=== PATIENT | female | born 1945 | race Caucasian/White ===

== ENCOUNTER 2016-11-21 10:21 | Observation (INO) | payer MEDICARE ==
[2016-11-21] MEDS ORDERED: Aspirin Low Dose CHEW TAB* 81 MG PO ONE (11:06)
--- NOTE | 2016-11-21 11:31 | RAD ---
INDICATION: Chest pain COMPARISON: Chest x-ray January 28, 2010 TECHNIQUE: Single AP portable view of the chest was obtained. FINDINGS: Image quality is compromised due to the relative inferiority of a portable chest x-ray. The heart and mediastinum exhibit normal size and contour. The lungs are grossly clear. There is no evidence of a large pleural effusion. Incidentally noted there is an 11 mm bony focus overlying the superior lateral aspect of the right humeral head which could represent calcification at the expected location of the supraspinatus tendon. Otherwise the bones are normal for the patient's age. IMPRESSION: No radiographic evidence for acute cardiopulmonary abnormality on this portable chest x-ray.
[2016-11-21 11:36] LABS: Hematocrit 45 % (35-47); Hemoglobin 14.6 g/dl (12.0-16.0); Mean Corpuscular HGB Conc 33 g/dl (31-36); Mean Corpuscular Hemoglobin 30 pg (27-31); Mean Corpuscular Volume 91 fL (80-97); Mean Platelet Volume 10 um3 (7.4-10.4); Red Blood Count 4.92 10^6/ul (4.0-5.4); Red Cell Distribution Width 14 % (10.5-15); White Blood Count 5.9 10^3/ul (3.5-10.8)
[2016-11-21 11:48] LABS: Albumin 4.3 g/dL (3.2-5.2); BUN/Creatinine Ratio 25.8 (8-20); Calcium 9.5 mg/dL (8.6-10.3); EGFR African American 122.4 (>60); EGFR Non-African American 95.2 (>60); Globulin 3.2 g/dL (2-4); Total Bilirubin 0.6 mg/dL (0.2-1.0); Total Protein 7.5 g/dL (6.4-8.9)
[2016-11-21] MEDS ORDERED: Aspirin EC TAB* 325 MG ONE (11:50)
[2016-11-21 12:23] LABS: Potassium 3.6 mmol/L (3.5-5.0)
--- NOTE | 2016-11-21 12:32 | RAD ---
HISTORY: Left leg pain TECHNIQUE: Multiple transverse and longitudinal ultrasound images were obtained of the veins of the right lower extremity using grayscale, color Doppler, and spectral Doppler imaging with and without compression and with augmentation. FINDINGS: VEINS: The common femoral vein, deep femoral vein, femoral vein and popliteal vein are compressible throughout their course, with normal flow on color Doppler imaging and normal response to augmentation on spectral Doppler imaging. SOFT TISSUES: Grossly normal. No large popliteal fossa cyst was identified. IMPRESSION: 1. No sonographic evidence of deep vein thrombosis. 2. Pulsatile flow is incidentally noted which can be seen in the presence of congestive heart failure.
[2016-11-21] MEDS ORDERED: Nitroglycerin TAB 0.4 MG* 0.4 MG TAB SL ONE (12:50)
[2016-11-21] MEDS ORDERED: Nitroglycerin TAB 0.4 MG* 0.4 MG TAB SL PRN (14:08)
[2016-11-21] MEDS ORDERED: Morphine INJ* 2 MG/ML 1 ML CARPUJECT IV PRN (14:08)
[2016-11-21] MEDS: Ibuprofen TAB* 600 MG PO PRN ×2 (14:47→20:58)
[2016-11-21] MEDS ORDERED: Iohexol 350* (CONTRAST) 500 ML MDV IV ONE (15:06)
--- NOTE | 2016-11-21 18:18 | RAD ---
INDICATION: Chest pain with radiation to the back COMPARISON: CT abdomen pelvis dated February 22, 2020 TECHNIQUE: CT angiography of the chest, abdomen and pelvis were obtained from the lung apices to the ischial tuberosities obtained after the injection of 100 mL Omnipaque 350. Reformats in the coronal and sagittal planes were created and independently reviewed. 3-D reformats were created and reviewed as well. ANGIOGRAPHIC FINDINGS: The thoracic and abdominal aorta is normal in size and morphology. There is no active aortic dissection identified. There is no significant atherosclerotic disease of the thoracic aorta. Eccentric mural calcification is noted along the left lateral aspect of the infrarenal abdominal aorta. The branch vessels of the thoracic aortic arch are adequately patent as are the major branch vessels from the abdominal aorta. Contrast is seen filling the bilateral iliac arteries and as far as the visualized proximal superficial femoral arteries. CHEST: There are no filling defects in the central or lobar branches of the pulmonary arteries to indicate acute pulmonary embolism. In the right upper lobe there are 2 pulmonary nodules measuring 3 mm in diameter (image 30 and 27 of 71). Along the posterior aspect of the right upper lobe there is a pleural-based density measuring 1.8 cm in length of doubtful clinical suspicion. There are no large pleural effusions. There is no mediastinal or hilar lymphadenopathy. The heart is grossly normal in appearance. ABDOMEN \T\ PELVIS: The liver, spleen, pancreas and adrenal glands are grossly normal in appearance. The gallbladder is normal. The kidneys are normal in appearance without focal mass, calcification or signs of hydronephrosis. Evaluation of the gastrointestinal tract is limited without oral contrast. There is no small or large bowel dilatation. The patient's normal appendix is identified with air in the lumen (coronal image 41). Scattered rectosigmoid diverticula are seen but none exhibit acute inflammatory change. There is no gross retroperitoneal or mesenteric lymphadenopathy. The pelvic viscera is normal in appearance. Degenerative changes of the lower thoracic and lumbar spine include loss of intervertebral disc height and vacuum disc phenomenon at L3/L4 and L1/L2. There is a small degree of anterolisthesis of L3 over L4. There are no sinister bone lesions. IMPRESSION: 1. No CT evidence of pathologic aortic aneurysm or dissection. 2. No CT evidence of central or lobar pulmonary embolism. 3. There are 2 3 mm pulmonary nodules in the right middle lobe that can be followed up according to the Fleischner Society recommendations according to the patient's risk factors for lung cancer. 4. Additional chronic and degenerative changes as described in the body of the report.
--- NOTE | 2016-11-21 18:20 | HP ---
CC: Dr. Anderson HISTORY AND PHYSICAL: DATE OF ADMISSION: 11/21/16 TIME OF EVALUATION: 1:45 p.m. PRIMARY CARE PROVIDER: Chico Anderson MD CHIEF COMPLAINT: Chest pain. HISTORY OF PRESENT ILLNESS: Ms. Fernandez is a 71-year-old lady with a past medical history of migra ine and H. pylori who presented to the emergency room with complaints of chest pain. She states she was in her usual state of health yesterday and she had a very busy day. She had visi tors, so she spent the whole day cleaning her home and cooking a large turkey dinner. She said that during the day she felt well with a lots of energy and usually when she cooks, she does not really eat that much, but she describes the dinner is being a very rich including turkey, green beans, stuf fing, and pumpkin pie. She states that by the time she went to the bed around midnight, she started to have some left-sided pain described as dull, 4/5 in intensity with some nausea, but no radiation , shortness of breath, or diaphoresis at that time. She did not take any medications and states that she was able to sleep. She woke up around 6 in the morning and the pain was still present, more in tense at that time, 6/10 in intensity still though, but radiating to her neck and jaw, left shoulder , and associated with some left arm tingling. At that time, she did have some nausea, some dyspnea, but denies palpitations or diaphoresis. She denies fever, chills, cough, or any other complaints. She contacted her PCP and was advised to come to the emergency room for further evaluation. The patient denies prior episodes of pain like this in the past. She works as a telephone worker and sta matheus that 3 weeks ago, she was able to clean a multilevel home going up and down the stairs, cleaning surfaces with no dyspnea or chest pain. The patient does have a history of H. pylori and states that she takes omeprazole at night sometimes for epigastric discomfort, but she states that the symptoms she had last night were different and s he does not think she does too much during her dinner. She denies any other GI complaints or any urinary complaints. The patient does complain of pain behind her left knee. This has been a chronic problem and she was going to physical therapy, but had no significant improvement. She denies any recent trips. Her long trip was 2 years to [place]. PAST MEDICAL HISTORY: 1. Migraines. 2. H. pylori. MEDICATION LIST: 1. Relpax 1 tablet p.o. daily as needed for migraines. 2. Omeprazole 40 mg p.o. at bedtime. ALLERGIES: With ACETAMINOPHEN, the patient has epigastric pain and nausea. With AMOXICILLIN, she h ad a rash. With CLARITHROMYCIN, the patient has palpitations. With ERYTHROMYCIN, the patient had a rash. With HYDROCODONE, the patient had nausea. With LATEX, she had a rash. With MOXIFLOXACIN, sh e had itchiness. With NAPROXEN, she had nausea and vomiting. With BACTRIM, she had a rash. With A DHESIVES, she had a rash. With NAPROXEN, she had palpitations and high blood pressure. FAMILY HISTORY: The patient's father has a history of Hodgkin lymphoma and also peripheral vascular disease with carotid artery stenosis. Her brother has severe rheumatoid arthritis. SOCIAL HISTORY: The patient states that she smoked for 2 years in the 1960s and quit. She occasion ally has some wine. She states that she experimented with marijuana in the past, but had no recent drug use. She works as a telephone worker. She is , has kids. Surrogate decision maker is her hu sband, Austin Fernandez, phone number is [phone] or [phone]. REVIEW OF SYSTEMS: A 14-point review of systems was performed and all the pertinent negative and po sitive findings are in the HPI. PHYSICAL EXAMINATION GENERAL: The patient is a pleasant lady, sitting up in the ER stretcher, in no acute distress. VITAL SIGNS: Temperature 98.6, heart rate is 78, respiratory rate is 16, oxygen saturation is 98% o n room air, and blood pressure is 146/71. HEENT: Pupils are equal and reactive to light. Extraocular movements intact. The patient is statu s post cataract surgery. CHEST: Breath sounds present bilaterally with no added sounds. CARDIOVASCULAR: Normal S1, S2. Regular rate and rhythm. No murmurs. ABDOMEN: Soft, nontender, and nondistended. Bowel sounds are present. EXTREMITIES: No edema. NEUROLOGIC: She is alert, awake, and oriented x3. She is able to move all 4 extremities. Power is equal bilaterally. Sensation is intact. DIAGNOSTIC STUDIES/LAB DATA: The patient had a CBC that showed a WBC of 5.9, hemoglobin of 14.6, h ematocrit of 45, platelets of 257 with 38% neutrophils. Chemistry showed a sodium of 136, potassium 3.6, chloride of 101, bicarb of 30, BUN of 16, creatinine of 0.62, glucose of 102, lactic acid of 1, and calcium of 9.5. LFTs were normal. Troponin is 0. EKG done on November 21 at 10:23 a.m. show sinus rhythm at 79 beats per minute with APCs. Negativ e Q-wave in V1, flat T-wave in V2, and this is new when compared to her prior EKG from January 2010. Another EKG was performed at 1139 hours the same date and showed no new changes, and a third one was done at 1249 hours with no new changes. Chest x-ray showed no acute cardiopulmonary abnormality. Lower extremity Doppler showed no sonographic evidence of deep vein thrombosis, but there is a note of positive flow incidentally noted, which can be seen in the presence of congestive heart failure. ASSESSMENT AND PLAN: Ms. Fernandez is a 71-year-old lady with past medical history of migraines and H. pylori who presented to the emergency room with complaints of chest pain associated with nausea a nd mild shortness of breath, who is going to be admitted to rule out acute coronary syndrome. 1. Chest pain, rule out acute coronary syndrome: Although the patient's story is of a lot of clean ing around her home yesterday and cooking that could suggest a musculoskeletal etiology. I am speci ally concerned, the episode she experienced this morning with pain radiating to her neck, shoulder, associated with left arm tingling. She does not have any EKG changes at this time. First troponin is negative. She will be admitted as observation to telemetry. If acute coronary syndrome is ruled out, the patient will undergo exercise Myoview stress test. In the meantime, she will be continued on aspirin and we are going to check a lipid profile. 2. Possible congestive heart failure: The patient did have some complaints of dyspnea with episode of chest pain and her lower extremity Doppler mentions there is pulsatile flow that could be noted in the patients with congestive heart failure, so an echocardiogram will be performed. 3. Elevated blood pressure: Although the patient has no history of hypertension, her blood pressur e has been elevated throughout her emergency room stay. At this point, I am just going to monitor h er numbers, but we will not give medications. 4. Code status: Full. 5. DVT prophylaxis: The patient has a score of 2 on the DVT Prophylaxis Risk Assessment Guide and she will be started on subcutaneous heparin. TIME SPENT: Approximately 65 minutes was spent with the patient interview, medical records review, physical examination to complete the admission, and more than half this time was spent [id number] with the patient and coordination of care. [id number]/[facility] #: [id number]
[2016-11-21] MEDS ORDERED: traMADol TAB* 50 MG PO PRN (19:59)
[2016-11-21] MEDS: Heparin VIAL(*) 5000 UNITS/ML VIAL (FIVE THOUSAND) SUBCUT SCH (21:00)
[2016-11-22] MEDS: Ibuprofen TAB* 600 MG PO PRN ×2 (03:22→21:48)
[2016-11-22] MEDS: Heparin VIAL(*) 5000 UNITS/ML VIAL (FIVE THOUSAND) SUBCUT SCH ×3 (05:18→20:48)
[2016-11-22 06:21] LABS: HDL Cholesterol 66.5 mg/dL
[2016-11-22] MEDS ORDERED: Omeprazole CAP* 20 MG PO SCH ×2 (07:30→21:00)
[2016-11-22] MEDS: Aspirin EC Low Dose* 81 MG TAB.EC PO SCH (08:24)
--- NOTE | 2016-11-22 10:07 | ECHO ---
Patient: JUDITH MEREDITH [facility] Rec#: [id number] : 1945 Date: 11/22/2016 Age: 71y Height: 157.5 cm / 62.0 in Weight: 61.7 kg / 136.0 lbs Sex: F BSA: 1.6 Room#: 433 Admit Date#: 11/21/2016 Type: Inpatient Referring: Mirlande Adam MD Reading: Sita Sands MD Gas Operations Superintendent: Cara Aviles RN RDCS CC: Chico Anderson MD Transthoracic Echocardiogram Indication: Chest pain, dyspnea BP: 133/66 HR: 65 Rhythm: NSR with PACs Findings History: Migraines Technical Comments: The study quality is fair. Completed at 0835. Left Ventricle: The left ventricular chamber size, wall thickness and systolic function are within normal limits. There are no wall motion abnormalities The estimated ejection fraction is 55-60%. There is no consistent Doppler evidence of clinically significant diastolic dysfunction. Left Atrium: The left atrial chamber size is normal. Right Ventricle: The right ventricular chamber size and systolic function are within normal limits. Right Atrium: The right atrial cavity size is normal. A prominent chiari network is noted in the right atrium. Aortic Valve: The aortic valve is trileaflet. The aortic valve leaflets are mildly thickened. There is a trace of aortic regurgitation. There is no evidence of aortic stenosis. Mitral Valve: There is mitral annular calcification. The mitral valve leaflets are mildly thickened. Mild subvalvular thickening of the mitral valve is visualized. There is mild to moderate mitral regurgitation. There is no evidence of mitral stenosis. Tricuspid Valve: The tricuspid valve leaflets are normal. There is mild tricuspid regurgitation. No pulmonary hypertension is noted. There is no tricuspid stenosis. Pulmonic Valve: The pulmonic valve structure is not well visualized. There is mild pulmonic regurgitation. There is no pulmonic stenosis. Pericardium: There is no significant pericardial effusion. A pericardial fat pad is visualized. Aorta: The ascending aorta is not well visualized. There is no dilatation of the aortic arch. There is no dilation of the aortic root. Pulmonary Artery: The main pulmonary artery is not well visualized. Venous: The inferior vena cava is dilated. There is a greater than 50% respiratory change in the inferior vena cava dimension. Summary: There was not any prior study for comparison. Conclusions The estimated ejection fraction is 55-60%. There is no consistent Doppler evidence of clinically significant diastolic dysfunction. There is a trace of aortic regurgitation. There is mild to moderate mitral regurgitation. There is mild tricuspid regurgitation. No pulmonary hypertension is noted. There is mild pulmonic regurgitation. Measurements Name Value Normal Range RVDdMajor (2D) 3 cm (2.2 - 4.4) RAd ISD 4CH 3.8 cm (3.4 - 4.9) RA (A4C)W 3.2 cm (2.9 - 4.6) IVSd (2D) 0.8 cm (0.6 - 1) LVPWd (2D) 0.8 cm (0.6 - 1) LVIDd (2D) 3.8 cm (3.6 - 5.4) LVIDs (2D) 2.6 cm - LV FS (2D) 32 % (25 - 45) Aortic Annulus 2 cm (1.4 - 2.6) Ao root diameter (2D) 3.1 cm (2.1 - 3.5) Aortic arch 2.7 cm (1.8 - 3.4) LA dimension (AP) 2D 3.1 cm (2.3 - 3.8) LAd ISD 4CH 3.7 cm (2.9 - 5.3) LA ISD 4CH W 4.3 cm (2.5 - 4.5) Name Value Normal Range LA ESV SP 4CH (A/L) 39 ml - LA ESV SP 2CH (A/L) 35 ml - LA ESV BP (A/L) 41 ml - LA ESV BP (A/L) index 25 ml/m2 - LA ESV SP 4CH (MOD) 34 ml - LA ESV SP 2CH (MOD) 31 ml - Name Value Normal Range MV E-wave Vmax 0.91 m/sec - MV deceleration time 222 msec - MV A-wave Vmax 0.97 m/sec - MV E:A ratio 0.9 ratio - LV septal e' Vmax 0.1 m/sec - LV lateral e' Vmax 0.11 m/sec - LV E:e' septal ratio 9.1 ratio - LV E:e' lateral ratio 8.3 ratio - Name Value Normal Range AV Vmax 1.3 m/sec - LVOT Vmax 0.99 m/sec - KIMBERLY Vmax 0.51 m/sec - Name Value Normal Range TR Vmax 2.3 m/sec - TR peak gradient 21 mmHg - RAP 8 mmHg - RVSP 29 mmHg - IVC diameter 2.2 cm - Name Value Normal Range PV Vmax 0.89 m/sec -
[2016-11-22] MEDS ORDERED: oxyCODONE TAB* 5 MG TAB PO PRN (10:50)
--- NOTE | 2016-11-22 14:33 | PN ---
Subjective Date of Service: 11/22/16 Interval History: HOSPITALIST PROGRESS NOTE Patient seen and examined at bedside. She feels better this AM, but still having intermittent episodes of left side chest pain radiating to her neck and jaw, associated with left arm tingling, while resting in bed, with provoking factors. Resolved spontaneously. Headache is improved with Ibuprofen and Morphine. 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 Family History: Unchanged from Admission Social History: Unchanged from Admission Past Medical History: Unchanged from Admission Objective Active Medications: Aspirin (Aspirin Ec Low Dose*) 81 mg PO DAILY [facility] Last Admin: 11/22/16 08:24 Dose: 81 mg Heparin Sodium (Porcine) (Heparin Vial(*)) 5,000 units SUBCUT Q8HR [facility] Last Admin: 11/22/16 05:18 Dose: 5,000 units Ibuprofen (Motrin Tab*) 600 mg PO Q6H PRN PRN Reason: PAIN Last Admin: 11/22/16 03:22 Dose: 600 mg Morphine Sulfate (Morphine Inj (Syringe)*) 2 mg IV Q4H PRN PRN Reason: SEVERE PAIN Last Admin: 11/22/16 08:24 Dose: 2 mg Omeprazole (Prilosec Cap*) 40 mg PO DAILY@0730 [facility] Last Admin: 11/22/16 08:24 Dose: 40 mg Oxycodone HCl (Roxycodone Tab*) 5 mg PO Q6H PRN PRN Reason: Moderate to severe pain Last Admin: 11/22/16 12:17 Dose: 5 mg Tramadol HCl (Ultram*) 50 mg PO Q6H PRN PRN Reason: PAIN Vital Signs 11/22/16 11/22/16 11/22/16 09:50 11:11 12:17 Temperature 98.7 F 98.1 F Pulse Rate 72 53 Respiratory 16 16 16 Rate Blood Pressure 130/63 127/57 (mmHg) O2 Sat by Pulse 98 98 Oximetry Oxygen Devices in Use Now: None Appearance: Pleasant lady sitting up in bed in NAD. Eyes: No Scleral Icterus Ears/Nose/Mouth/Throat: Mucous Membranes Moist Neck: Trachea Midline Respiratory: Symmetrical Chest Expansion and Respiratory Effort, Clear to Auscultation Cardiovascular: NL Sounds; No Murmurs; No JVD, RRR Abdominal: NL Sounds; No Tenderness; No Distention Extremities: No Edema Skin: No Rash or Ulcers Neurological: Alert and Oriented x 3, NL Muscle Strength and Tone Lines/Tubes/Other Access: Clean, Dry and Intact Peripheral IV Nutrition: Taking PO's Result Diagrams: 11/21/16 11:26 11/21/16 11:26 Assess/Plan/Problems-Billing Assessment: Mrs. Fernandez is a 71yo F with PMH of migraines and H. pylori who presented to ED with c/o CP. - Patient Problems (1) Chest pain Comment: - ACS is ruled out. - Less likely to be cardiac at this point with serial negative troponins, no EKG changes and echo with no wall motion abnormalities. - CTA chest was negative for dissection or PE. - For stress test tomorrow, but suspect in the end her pain will be musculoskeletal secondary to cleaning her home and lifiting heavy things. She has no weakness to suggest a cervical spine process at this time. (2) DVT prophylaxis Comment: - SQ heparin. (3) Full code status Status and Disposition: OBV.
--- NOTE | 2016-11-22 22:17 | ED ---
Autumn Orosco Rebecca, scribed for Raulito Rodriguez MD on 11/21/16 at 1123 . HPI Chest Pain - HPI Summary HPI Summary: Pt is a 71 y/o F who presents to ED c/o CP. Pain began suddenly last night, she went back to sleep and woke up at 0620 with the pain again. Pain has been constant since onset. Pain is midsternal with radiation to the L jaw and is characterized as a "pinprick." Pain is currently not present. Sx alleviated by spontaneous resolution, aggravated by nothing. Has not taken anything to treat sx today. Additionally c/o LUE tingling, SOB, diaphoresis and nausea. Denies cough, edema and calf pain. Notes that she has chronic pain in the LLE which causes a limp - is in PT. - History of Current Complaint Chief Complaint: EDChestPainROMI Time Seen by Provider: 11/21/16 11:06 Hx Obtained From: Patient Onset/Duration: Started Days Ago - last night, Resolved Timing: Constant Initial Severity: Moderate Current Severity: None Pain Intensity: 0 Pain Scale Used: 0-10 Numeric Chest Pain Location: Mid Sternal Chest Pain Radiates: Yes Chest Pain Radiates To:: Jaw - left Character: Sharp/Stabbing - "pinprick" Aggravating Factor(s): Nothing Alleviating Factor(s): Nothing Associated Signs and Symptoms: Positive: Chest Pain, Tingling - LUE, Shortness of Breath, Diaphoresis, Nausea. Negative: Cough, Calf Pain/Swelling - Allergy/Home Medications Allergies/Adverse Reactions: Allergies Allergy/AdvReac Type Severity Reaction Status Date / Time Acetaminophen [From Vicodin] Allergy HYPER, Verified 07/05/14 12:32 PAIN INCREASED, NAUSEA Amoxicillin Allergy Rash Verified 07/05/14 12:32 Clarithromycin [From Biaxin] Allergy See Comment Verified 07/05/14 12:32 Clavulanic Acid Allergy Stomach Verified 07/05/14 12:32 [From Augmentin] Cramps Erythromycin Allergy Rash Verified 07/05/14 12:32 Hydrocodone [From Vicodin] Allergy HYPER, Verified 07/05/14 12:32 PAIN INCREASED, NAUSEA Latex Allergy Rash Verified 07/05/14 12:32 Moxifloxacin Allergy See Comment Verified 07/05/14 12:32 Naproxen [From Aleve] Allergy N/V Verified 07/05/14 12:32 Sulfamethoxazole Allergy Rash Verified 07/05/14 12:32 w/Trimethoprim [From Bactrim] ADHESIVES Allergy See Comment Uncoded 07/02/14 08:40 NAPROXEN Allergy See Comment Uncoded 07/02/14 08:40 Home Medications: Home Medications Omeprazole CAP* [Prilosec CAP* 20 MG] 40 mg PO DAILY 11/21/16 [History Confirmed 11/21/16] PMH/Surg Hx/FS Hx/Imm Hx Cardiovascular History: Denies: Other Cardiovascular Problems/Disorders Respiratory History: Denies: Other Respiratory Problems/Disorders GI History: Denies: Other GI Disorders History: Reports: Hx Kidney Stones - IN THE PAST WITH STENT PLACED Denies: Other Problems/Disorders Musculoskeletal History: Denies: Other Musculoskeletal History Sensory History: Reports: Hx Cataracts, Hx Contacts or Glasses - GLASSES Denies: Hx Hearing Aid Opthamlomology History: Reports: Hx Cataracts, Hx Contacts or Glasses - GLASSES Neurological History: Reports: Hx Headaches, Hx Migraine - INTERMITTENT Denies: Other Neuro Impairments/Disorders - Surgical History Surgery Procedure, Year, and Place: VERICOSE VEIN 2004 [facility]. 02/16/13, BUNIONECTOMY, RIGHT , [facility] [place]. URETERAL STENT, [facility] [place], 2007. TONSILECTOMY A CHILD Hx Anesthesia Reactions: Yes - VOMITING Infectious Disease History: No Infectious Disease History: Denies: Traveled Outside the [place] in Last 30 Days - Family History Known Family History: Negative: Hypertension, Diabetes - Social History Alcohol Use: Rare Alcohol Amount: HOLIDAYS Substance Use Type: Reports: None Review of Systems Positive: Skin Diaphoresis. Negative: Fever, Chills Negative: Blurred Vision, Erythema Negative: Sore Throat Positive: Chest Pain - midsternal Positive: Shortness Of Breath. Negative: Cough Positive: Nausea. Negative: Abdominal Pain, Vomiting Negative: dysuria, hematuria Positive: Other - Denies calf pain. Negative: Myalgia, Edema Negative: Rash Neurological: Other - LUE tingling, Denies dizziness All Other Systems Reviewed And Are Negative: Yes Physical Exam - Summary Physical Exam Summary: Constitutional: Well-developed, Well-nourished, Alert. (-) Distressed Skin: Warm, Dry HENT: Eyes: Conjunctiva normal Neck: Musculoskeletal ROM normal neck. (-) JVD, (-) Stridor, (-) Tracheal deviation Cardio: Rhythm regular, rate normal, Heart sounds normal; Intact distal pulses; The pedal pulses are 2+ and symmetric. Radial pulses are 2+ and symmetric. (-) Murmur Pulmonary/Chest wall: Effort normal. (-) Respiratory distress, (-) Wheezes, (-) Rales Abd: Soft, (-) Tenderness, (-) Distension, (-) Guarding, (-) Rebound Musculoskeletal: (-) Edema Lymph: (-) Cervical adenopathy Neuro: Alert, Oriented x3 Psych: Mood and affect Normal Triage Information Reviewed: Yes Vital Signs On Initial Exam: Initial Vitals Temp Pulse Resp BP Pulse Ox 98.6 F 72 15 157/65 100 11/21/16 10:29 11/21/16 10:29 11/21/16 10:29 11/21/16 10:29 11/21/16 10:29 Vital Signs Reviewed: Yes Diagnostics - Vital Signs Vital Signs Temp Pulse Resp BP Pulse Ox 11/21/16 10:29 98.6 F 72 15 157/65 100 - Laboratory Result Diagrams: 11/21/16 11:26 11/21/16 11:26 Lab Statement: Any lab studies that have been ordered have been reviewed, and results considered in the medical decision making process. - Radiology No standard instances Xray Interpretation: No Acute Changes Radiology Interpretation Completed By: Radiologist - Ultrasound No standard instances Ultrasound Interpretation Completed By: Radiologist - Venous Doppler Study - 1. No sonographic evidence of deep vein thrombosis. 2. Pulsatile flow is incidentally noted which can be seen in the presence of congestive heart failure. - EKG 1139 Cardiac Rate: NL - 64 bpm EKG Rhythm: Sinus Rhythm EKG Interpretation: No STEMI 1249 Cardiac Rate: NL - 74 bpm EKG Rhythm: Sinus Rhythm EKG Interpretation: No STEMI EKG Comparison: No Significant Change - from EKG today at 1139 Re-Evaluation - Re-Evaluation First Eval Re-Evaluation Time: 12:52 Change: Worse Comment: Chest pain has returned. Chest Pain Course/Dx - Course Assessment/Plan: Pt is a 71 y/o with a CC of CP since last night. Additionally c /o LUE tingling, SOB, diaphoresis and nausea. Denies cough, edema and calf pain. Venous Doppler study, EKG and CXR reveal no acute pathology. Discussed care of pt with Dr. Gloria, hospitalist, who accepts pt for admission. Pt will be admitted with a dx of chest pain, unspecified. - Diagnoses Provider Diagnoses: Chest pain, unspecified - Provider Notifications Discussed Care Of Patient With: Dr. Gloria hospitalist, who accepts pt for admission. Time Discussed With Above Provider: 12:48 Discharge - Discharge Plan Condition: Good Disposition: ADMITTED TO [facility] documentation as recorded by the Autumn hernadnez Rebecca accurately reflects the service I personally performed and the decisions made by , Raulito Rodriguez MD.
[2016-11-23] MEDS: Heparin VIAL(*) 5000 UNITS/ML VIAL (FIVE THOUSAND) SUBCUT SCH (07:13)
--- NOTE | 2016-11-23 11:54 | RAD ---
HISTORY: Chest pain COMPARISONS: None TECHNIQUE: A 1 day stress/rest myocardial perfusion study was performed, with exercise stress. The exercise portion was performed using the Roger protocol, for a total METs of 10.1. The stress portion was monitored by Dr. Phillips. Gated SPECT imaging was performed, with CT-based attenuation correction DOSE: Stress: Technetium 99m tetrofosmin, 25.94 millicuries, injected at 9:01 AM on November 23, 2016 Rest: Technetium 99m tetrofosmin, 10.2 millicuries, injected at 7:20 AM on November 23, 2016 Pharmacologic agent: None FINDINGS: CARDIAC MONITORING: No EKG changes of ischemia with stress. Peak heart rate of 155 bpm, 103% of predicted EF: 82 % TID: 1.07 MOTION: Normal motion, with normal wall thickening. PERFUSION: There is a reversible perfusion defect of the anterolateral wall that nearly completely resolved with attenuation correction. The small residual may be an artifact of misregistration. OTHER: None IMPRESSION: SMALL REVERSIBLE PERFUSION DEFECT OF THE ANTEROLATERAL WALL WHICH MAY BE ARTIFACTUAL. NORMAL EJECTION FRACTION. ASSESSMENT: LOW RISK. Based on imaging criteria from ACC/AHA 2002. Guideline Update for the Management of Patient's with Chronic Stable Angina, table 23. Noninvasive Risk Stratification.
[2016-11-23 12:46] VITALS: BP 126/60
[2016-11-23] MEDS: Aspirin EC Low Dose* 81 MG TAB.EC PO SCH (12:55)
--- NOTE | 2016-11-24 03:28 | DS ---
DISCHARGE SUMMARY: DATE OF ADMISSION: 11/21/16 DATE OF DISCHARGE: 11/23/16 PRIMARY CARE PROVIDER: Dr. Anderson. DISCHARGE DIAGNOSES: 1. Atypical chest pain, acute coronary syndrome ruled out, likely musculoskeletal in nature. 2. Possible hypertension. 3. Incidental finding of lung nodule. SECONDARY DIAGNOSES: 1. Migraines. 2. History of Helicobacter pylori. MEDICATION LIST: 1. Relpax 1 tablet p.o. daily as needed for migraines. 2. Omeprazole 40 mg p.o. at bedtime. New medication: Ibuprofen 600 mg p.o. q.6 hours as needed for pain. HOSPITAL COURSE: Ms. Fernandez is a 71-year-old lady with a past medical history as stated above that presented to the emergency room on November 21 with complaints of chest pain. She has performed a lot of cleaning at her home, lifting heavy things, preparing a turkey dinner, and when she was finally able to finish everything and went to bed, she started to have left-sided chest pain radiating to her shoulder and with some arm tingling. For more details about presentation, I refer you to her history and physical. The patient was admitted to the telemetry floor, where she had serial troponins that were negative and she had no acute EKG changes. She had only PVCs while on telemetry, but no other significant arrhythmias. As the patient's chest pain also was radiating to her neck and back, a CTA of the chest was performed. Her CTA of the chest, abdomen, and pelvis showed no CT evidence of pathologic aortic aneurysm or dissection. No CT evidence of potential or lobar pulmonary embolism. There was incidental finding of two 3-mm pulmonary nodules in the right middle lobe that can be followed up according to the Fleischner Society recommendations, according to the patient's risks factors for lung cancer. The patient had a transthoracic echocardiogram. Echocardiogram showed ejection fraction of 55% to 60%, no consistent Doppler evidence of clinically significant diastolic dysfunction. Trace aortic regurgitation, [id number] mitral regurgitation, mild tricuspid regurgitation, no pulmonary hypertension. The patient underwent an exercise Myoview stress test. The exercise Myoview stress test showed a small reversible perfusion defect of the anterolateral wall , which may be artifactual. There is normal ejection fraction and the assessment was this was a low-risk stress test. Considering her presentation, I believe her chest pain is noncardiac in nature and is probably musculoskeletal associated with exertion of lifting heavy things and cleaning up her house. While in the hospital, the patient was noted to have some elevation of her blood pressure with systolics in the 140s to 150s and diastolic sometimes up to 90s. I believe this is not enough to make a formal diagnosis of hypertension, but her number should be followed as outpatient to decide if she will need medication. At this point, I just advised dietary changes. The same applies to her cholesterol. Her LDL is 111, and she was also advised about diet. The patient is medically stable for discharge at this time. She will follow up with Dr. Anderson as outpatient. PHYSICAL EXAMINATION: Vital Signs: Temperature 97.7, heart rate is 75, respiratory rate is 16, oxygen saturation 99% on room air, blood pressure is 126 /60. General: The patient is a pleasant lady, sitting up in chair, in no acute distress. CVS: Normal S1 and S2. Regular rate and rhythm. Chest: Breath sounds present bilaterally with no added sounds. Abdomen is soft. Bowel sounds are present. Extremities: No edema. Neuro: She is alert, awake, oriented x3. She is able to move all 4 extremities. DIET: Regular diet. ACTIVITIES: As tolerated. DISPOSITION: To home. STATUS WHILE IN THE HOSPITAL: Observation. If you need more information, please feel free to call me at [phone] or please obtain the full medical records. The patient was advised about concerning symptoms and what should prompt her to return to the emergency room. TIME SPENT: Approximately 45 minutes was spent to complete this discharge. All of the patient and her 's questions were answered. CC: Dr. Anderson * [id number]/[facility] #: [id number] [facility]
== END 2016-11-23 15:00 | disposition home or self-care (01) ==
LOC: ED 10:21 → MEDTELE 12:53
PROVIDERS: ADMIT Internal Medicine; ATTEND Internal Medicine
DX: R07.9 Chest pain, unspecified (principal); R91.1 Solitary pulmonary nodule; M79.604 Pain in right leg; R51 Headache; I49.1 Atrial premature depolarization; R20.2 Paresthesia of skin; R06.00 Dyspnea, unspecified; I34.0 Nonrheumatic mitral (valve) insufficiency; Z88.0 Allergy status to penicillin; Z88.2 Allergy status to sulfonamides; Z88.1 Allergy status to other antibiotic agents; Z88.8 Allergy status to other drugs, medicaments and biological substances; Z87.891 Personal history of nicotine dependence
CPT/HCPCS: 36415; 71010; 71275; 74174; 78452; 80053; 80061; 83605; 84484; 85025; 93005; 93017; 93306; 96372; 96374; 99283; A9270-GY; A9502; G0378; J1644; J2270; Q9967

== ENCOUNTER 2018-06-10 09:43 | Emergency (ER) | payer MEDICARE ==
--- NOTE | 2018-06-10 10:25 | ED ---
HPI Chest Pain - HPI Summary HPI Summary: Patient is a 73 y/o F w/ c/o two episodes of intermittent chest pain onsetting yesterday morning and today this morning, both at around 0800. In the room, she denies chest pain as currently present. First episodes of chest pain was midsternal, second was leftsided. Chest pain is described as sharp and onset while drinking coffee both mornings. Both episodes of chest pain lasted 10-15 minutes and was noted to have "went away naturally". She states that clearing her chest of mucous aggravated her chest pain. Patient also notes that she experienced nausea and left arm aching/numbness shortly after chest pain onset. Patient states she has no home medication. FMHx of breast cancer in mother, denies cardiac FMHx. Patient notes that she has Hx of "extra heartbeats". She denies smoking. - History of Current Complaint Chief Complaint: EDChestPainROMI Time Seen by Provider: 06/10/18 10:06 Hx Obtained From: Patient Onset/Duration: Started Hours Ago - episode today onset 0800, Started Days Ago - first episode yersterday 0800, Resolved Timing: Lasting Minutes - lasting 10-15, both episodes Current Severity: None Pain Intensity: 0 Pain Scale Used: 0-10 Numeric - 0/10 Chest Pain Location: Mid Sternal - yesterday episode, Left Anterior - today's episode Character: Sharp/Stabbing Aggravating Factor(s): Other: - clearing chest of mucous Alleviating Factor(s): Nothing Associated Signs and Symptoms: Positive: Tingling - left arm, Nausea, Other: - left arm aching - Additional Pertinent History Primary Care Physician: [id number] - Allergy/Home Medications Allergies/Adverse Reactions: Allergies Allergy/AdvReac Type Severity Reaction Status Date / Time MS Acetaminophen Allergy HYPER, Verified 06/10/18 09:49 [From Vicodin] PAIN INCREASED, NAUSEA MS Amoxicillin [Amoxicillin] Allergy Rash Verified 06/10/18 09:49 MS Clarithromycin Allergy See Comment Verified 06/10/18 09:49 [From Biaxin] MS Clavulanic Acid Allergy Stomach Verified 06/10/18 09:49 [From Augmentin] Cramps MS Erythromycin Allergy Rash Verified 06/10/18 09:49 [Erythromycin] MS Latex [Latex] Allergy Rash Verified 06/10/18 09:49 MS Moxifloxacin Allergy See Comment Verified 06/10/18 09:49 [Moxifloxacin] MS Sulfamethoxazole Allergy Rash Verified 06/10/18 09:49 w/Trimethoprim [From Bactrim] MS Hydrocodone [From Vicodin] AdvReac HYPER, Verified 06/10/18 09:49 PAIN INCREASED, NAUSEA MS Naproxen [From Aleve] AdvReac N/V Verified 06/10/18 09:49 ADHESIVES Allergy See Comment Uncoded 07/02/14 08:40 Home Medications: Home Medications Omeprazole CAP* [Prilosec CAP* 20 MG] 40 mg PO BEDTIME PRN 06/10/18 [History Confirmed 06/10/18] PMH/Surg Hx/FS Hx/Imm Hx Endocrine/Hematology History: Denies: Hx Diabetes Cardiovascular History: Reports: Hx Angina Denies: Hx Coronary Artery Disease, Hx Hypercholesterolemia, Hx Hypertension , Hx Myocardial Infarction, Hx Valvular Heart Disease, Other Cardiovascular Problems/Disorders Respiratory History: Denies: Hx Asthma, Hx Chronic Obstructive Pulmonary Disease (COPD), Other Respiratory Problems/Disorders GI History: Denies: Other GI Disorders History: Reports: Hx Kidney Stones - IN THE PAST WITH STENT PLACED Denies: Other Problems/Disorders Musculoskeletal History: Denies: Other Musculoskeletal History Sensory History: Reports: Hx Cataracts, Hx Contacts or Glasses - GLASSES Denies: Hx Hearing Aid Opthamlomology History: Reports: Hx Cataracts, Hx Contacts or Glasses - GLASSES Neurological History: Reports: Hx Headaches, Hx Migraine - INTERMITTENT Denies: Other Neuro Impairments/Disorders - Surgical History Surgery Procedure, Year, and Place: VERICOSE VEIN 2005 [facility]. 02/16/13, [place] [facility] [place] [facility] [place] CH[place] Hx Anesthesia Reactions: Yes - VOMITING Infectious Disease History: No Infectious Disease History: Denies: Traveled Outside the [place] in Last 30 Days - Family History Known Family History: Positive: Other - mother had breast cancer Negative: Cardiac Disease, Hypertension, Diabetes - Social History Alcohol Use: Rare Alcohol Amount: HOLIDAYS Substance Use Type: Reports: None Smoking Status (MU): Former Smoker Review of Systems Positive: Chest Pain - midsternal yesterday, left sided today Positive: Nausea Neurological: Other - left arm tingling/aching All Other Systems Reviewed And Are Negative: Yes Physical Exam - Summary Physical Exam Summary: Appearance: The patient is well-nourished in no acute distress and in no acute pain. Skin: The skin is warm and dry and skin color reflects adequate perfusion. HEENT: The head is normocephalic and atraumatic. The pupils are equal and reactive. The conjunctivae are clear and without drainage. Nares are patent and without drainage. Mouth reveals moist mucous membranes and the throat is without erythema and exudate. The external ears are intact. The ear canals are patent and without drainage. The tympanic membranes are intact. Neck: The neck is supple with full range of motion and non-tender. There are no carotid bruits. There is no neck vein distension. Respiratory: Chest is non-tender. Lungs are clear to auscultation and breath sounds are symmetrical and equal. Cardiovascular: Heart is regular rate and rhythm. There is no murmur or rub auscultated. There is no peripheral edema and pulses are symmetrical and equal. Abdomen: The abdomen is soft and non-tender. There are normal bowel sounds heard in all four quadrants and there is no organomegaly palpated. Musculoskeletal: There is no back tenderness noted. Extremities are non-tender with full range of motion. There is good capillary refill. There is no peripheral edema or calf tenderness elicited. Tenderness at left parasternal area, point tenderness. Neurological: Patient is alert and oriented to person, place and time. The patient has symmetrical motor strength in all four extremities. Cranial nerves are grossly intact. Deep tendon reflexes are symmetrical and equal in all four extremities. Psychiatric: The patient has an appropriate affect and does not exhibit any anxiety or depression. Triage Information Reviewed: Yes Vital Signs On Initial Exam: Initial Vitals Temp Pulse Resp BP Pulse Ox 98.2 F 76 18 170/66 97 06/10/18 09:45 06/10/18 09:45 06/10/18 09:45 06/10/18 09:45 06/10/18 09:45 Vital Signs Reviewed: Yes Diagnostics - Vital Signs Vital Signs Temp Pulse Resp BP Pulse Ox 06/10/18 10:00 70 16 99 06/10/18 09:59 71 19 98 06/10/18 09:57 74 177/81 99 06/10/18 09:45 98.2 F 76 18 170/66 97 - Laboratory Result Diagrams: 06/10/18 10:30 06/10/18 10:30 Lab Statement: Any lab studies that have been ordered have been reviewed, and results considered in the medical decision making process. - Radiology CXR Xray Interpretation: No Acute Changes Radiology Interpretation Completed By: Radiologist - no active disease; this report was reviewed by ED physician - EKG 0957 Cardiac Rate: NL - rate of 76, EKG Rhythm: Sinus Rhythm EKG Interpretation: APCs, no acute change Re-Evaluation - Re-Evaluation First Eval Re-Evaluation Time: 14:37 Change: Improved Comment: Patient reports feeling fine. She will be discharged to home and follow up with PCP in 2-3 days. She is agreeable with this plan. Chest Pain Course/Dx - Course Course Of Treatment: Ms. Fernandez presented with an atypical chest pain that has occurred twice in the last few days. She was worked up with labs including a d-dimer and delayed troponin. She was kept on a monitor and EKG was noted to have no acute ischemic changes. It does not appear as though anything dangerous is happening but I did recommend close follow-up next week with her PCP for further workup. - Diagnoses Provider Diagnoses: Chest pain Discharge - Sign-Out/Discharge Documenting (check all that apply): Patient Departure - discharge - Discharge Plan Condition: Stable Disposition: HOME Patient Education Materials: Chest Pain (ED) Referrals: Chico Anderson MD [Primary Care Provider] - 3 Days Additional Instructions: Return to ED for any changing or worsening symptoms. Follow up with primary care physician in 2-3 days. - Billing Disposition and Condition Condition: STABLE Disposition: Home - Attestation Statements Document Initiated by Jaycee: Yes Documenting Scribe: Raji Ramos Provider For Whom Jaycee is Documenting (Include Credential): Bashir Penaloza MD Scribe Attestation: Raji Orosco, scribed for Bashir Penaloza MD on 06/10/18 at 1843. Scribe Documentation Reviewed: Yes Provider Attestation: The documentation as recorded by the Raji hernandez accurately reflects the service I personally performed and the decisions made by me, Bashir Penaloza MD
[2018-06-10 10:44] LABS: ABS Basophils 0 10^3/ul (0-0.2); ABS Eosinophils 0.2 10^3/ul (0-0.6); ABS Monocytes 0.7 10^3/ul (0-0.8); ABS Nucleated RBC 0 10^3/ul; Eosinophil % 3.9 % (0-6); Hematocrit 41 % (35-47); Hemoglobin 13.7 g/dl (12.0-16.0); Lymphocyte % 40.6 % (25-47); Mean Corpuscular HGB Conc 34 g/dl (31-36); Mean Corpuscular Hemoglobin 31 pg (27-31); Mean Corpuscular Volume 91 fL (80-97); Mean Platelet Volume 8.4 um3 (7.4-10.4); Nucleated Red Blood Cells % 0.1; Platelet Count 242 10^3/ul (150-450); Red Blood Count 4.48 10^6/ul (4.00-5.40); Red Cell Distribution Width 14 % (10.5-15)
[2018-06-10 10:57] LABS: INR 0.91 (0.77-1.02)
[2018-06-10 11:11] LABS: EGFR Non-African American 92.9 (>60)
--- NOTE | 2018-06-10 11:52 | RAD ---
INDICATION: Left shoulder and arm pain COMPARISON: January 28, 2010 TECHNIQUE: An AP portable view obtained at 1056 hours is submitted. FINDINGS: Bones/Soft Tissues: There are no acute bony findings. Cardiomediastinal: The cardiomediastinal silhouette is normal. Lungs: There are no infiltrates. Pleura: There are no pleural effusions. Other: None IMPRESSION: NO ACTIVE DISEASE.
[2018-06-10 14:39] VITALS: BP 138/72
== END 2018-06-10 14:41 | disposition home or self-care (01) ==
LOC: ED 09:43
DX: R07.9 Chest pain, unspecified (principal); R11.0 Nausea; Z88.0 Allergy status to penicillin; Z87.442 Personal history of urinary calculi; Z87.891 Personal history of nicotine dependence
CPT/HCPCS: 36415; 71045; 80053; 83605; 84484; 85025; 85379; 85610; 93005; 99283

== ENCOUNTER 2019-04-09 11:13 | Emergency (ER) | payer MEDICARE ==
[2019-04-09 11:47] LABS: Urine Appearance Clear; Urine Bacteria Absent (Absent); Urine Bilirubin Negative (Negative); Urine Blood 1+ (Negative); Urine Color Straw; Urine Glucose Negative (Negative); Urine Ketones Negative (Negative); Urine Nitrite Negative (Negative); Urine Protein Negative (Negative); Urine Red Blood Cell 1+(3-5/hpf) (Absent); Urine Specific Gravity 1.004 (1.010-1.030); Urine Squamous Epithelial Cell Present (Absent); Urine Urobilinogen Negative (Negative); Urine White Blood Cell Absent (Absent)
[2019-04-09] MEDS ORDERED: NS 0.9% 1000 ML** 1,000 ML IV ONE (12:32)
[2019-04-09] MEDS ORDERED: Ketorolac INJ* 30 MG/ML 1 ML VIAL IV ONE (12:32)
[2019-04-09] MEDS ORDERED: Phenazopyridine TAB* 100 MG PO ONE (12:34)
[2019-04-09 13:15] LABS: ABS Eosinophils 0.1 10^3/ul (0-0.6); ABS Lymphocytes 1.2 10^3/ul (1.0-4.8); ABS Monocytes 0.7 10^3/ul (0-0.8); ABS Neutrophils 3.5 10^3/ul (1.5-7.7); Eosinophil % 1.3 %; Hematocrit 43 % (35-47); Hemoglobin 14.6 g/dL (12.0-16.0); Lymphocyte % 22.2 %; Mean Corpuscular HGB Conc 34 g/dL (31-36); Mean Corpuscular Hemoglobin 31 pg (27-31); Mean Corpuscular Volume 92 fL (80-97); Mean Platelet Volume 8.6 fL (7.4-10.4); Platelet Count 229 10^3/uL (150-450); Red Blood Count 4.66 10^6 /uL (3.70-4.87); Red Cell Distribution Width 13 % (10-15); White Blood Count 5.4 10^3/uL (3.5-10.8)
[2019-04-09 13:35] LABS: Albumin 4.2 g/dL (3.2-5.2); Albumin/Globulin Ratio 1.4 (1-3); BUN/Creatinine Ratio 13.2 (8-20); C Reactive Protein 22.22 mg/L (<8.01); Calcium 9.7 mg/dL (8.6-10.3); EGFR African American 102.9 (>60); EGFR Non-African American 85.1 (>60); Globulin 3.1 g/dL (2-4); Total Bilirubin 0.4 mg/dL (0.2-1.0); Total Protein 7.3 g/dL (6.4-8.9)
[2019-04-09 15:16] VITALS: BP 142/60
--- NOTE | 2019-04-09 16:10 | ED ---
GI/ HPI - HPI Summary HPI Summary: Patient is a 73-year-old female presenting to the ED with chief complaint of suprapubic tenderness, burning with urination, sweats and chills overnight last evening. She is also endorsing a headache which is not normal for her. She states this headache is not worst of life and not acute onset. She states she just does not feel well overall. Denies any subjective fevers. Denies any nausea or vomiting. Denies any incontinence. Denies any chest pain or shortness of breath. Patient does endorse some right-sided flank pain, however this has been intermittent since last evening, is a dull ache. Patient does endorse a history of urethral dilatation as well as a stent placement between kidney and bladder. states this was several years ago and her symptoms prior to receiving the stent placement or similar to today' s presentation. She has not taken any medication for relief. She continues to eat and drink okay. She denies taking any medications and is otherwise healthy. She denies any gross hematuria, vaginal discharge, vaginal bleeding or symptoms of a yeast infection. She states when her symptoms began 2 days ago , she took Monistat preventatively. - History of Current Complaint Chief Complaint: EDUrogenitalProblems Time Seen by Provider: 04/09/19 11:25 Stated Complaint: "FEVER/ BACK PAIN PER PT" Hx Obtained From: Patient Onset/Duration: Started Days Ago Timing: Constant Severity: Moderate Current Severity: Moderate Pain Intensity: 2 Aggravating Factor(s): Voiding, Straining, Urination - Additional Pertinent History Primary Care Physician: [id number] - Allergy/Home Medications Allergies/Adverse Reactions: Allergies Allergy/AdvReac Type Severity Reaction Status Date / Time acetaminophen [From Vicodin] Allergy See Comment Verified 04/09/19 11:46 amoxicillin Allergy Rash Verified 04/09/19 11:46 clarithromycin [From Biaxin] Allergy See Comment Verified 04/09/19 11:46 clavulanic acid Allergy Stomach Verified 04/09/19 11:46 [From Augmentin] Cramps erythromycin base Allergy Rash Verified 04/09/19 11:46 hydrocodone [From Vicodin] Allergy See Comment Verified 04/09/19 11:46 latex Allergy Rash Verified 04/09/19 11:46 moxifloxacin Allergy Itching Verified 04/09/19 11:46 naproxen Allergy Nausea And Verified 04/09/19 11:46 Vomiting sulfamethoxazole Allergy Rash Verified 04/09/19 11:46 [From Bactrim] trimethoprim [From Bactrim] Allergy Rash Verified 04/09/19 11:46 ADHESIVES Allergy See Comment Uncoded 07/02/14 08:40 PMH/Surg Hx/FS Hx/Imm Hx Previously Healthy: Yes Endocrine/Hematology History: Denies: Hx Diabetes Cardiovascular History: Reports: Hx Angina Denies: Hx Coronary Artery Disease, Hx Hypercholesterolemia, Hx Hypertension , Hx Myocardial Infarction, Hx Valvular Heart Disease, Other Cardiovascular Problems/Disorders Respiratory History: Denies: Hx Asthma, Hx Chronic Obstructive Pulmonary Disease (COPD), Other Respiratory Problems/Disorders GI History: Denies: Other GI Disorders History: Reports: Hx Kidney Stones - IN THE PAST WITH STENT PLACED Denies: Other Problems/Disorders Musculoskeletal History: Denies: Other Musculoskeletal History Sensory History: Reports: Hx Cataracts, Hx Contacts or Glasses - GLASSES Denies: Hx Hearing Aid Opthamlomology History: Reports: Hx Cataracts, Hx Contacts or Glasses - GLASSES Neurological History: Reports: Hx Headaches, Hx Migraine - INTERMITTENT Denies: Other Neuro Impairments/Disorders - Surgical History Surgery Procedure, Year, and Place: VERICOSE VEIN 2005 [facility]. 02/16/13, BUNIONECTOMY, RIGHT , [facility] – [place]. URETERAL STENT, [facility] [place], 2007. TONSILECTOMY A CHILD Hx Anesthesia Reactions: Yes - VOMITING - Immunization History Hx Pertussis Vaccination: No Immunizations Up to Date: Yes Infectious Disease History: No Infectious Disease History: Denies: Traveled Outside the [place] in Last 30 Days - Family History Known Family History: Positive: Other - mother had breast cancer Negative: Cardiac Disease, Hypertension, Diabetes - Social History Occupation: Employed Full-time Lives: With Family Alcohol Use: Rare Alcohol Amount: HOLIDAYS Hx Substance Use: No Substance Use Type: Reports: None Hx Tobacco Use: Yes Smoking Status (MU): Former Smoker Review of Systems Positive: Chills, Skin Diaphoresis. Negative: Fever, Fatigue Negative: Palpitations, Chest Pain Negative: Shortness Of Breath, Cough Positive: Abdominal Pain. Negative: Vomiting, Diarrhea, Nausea Positive: see HPI, dysuria, flank pain, pain, urgency. Negative: incontinence Negative: Arthralgia, Myalgia Skin: Negative Neurological: Negative All Other Systems Reviewed And Are Negative: Yes Physical Exam Triage Information Reviewed: Yes Vital Signs On Initial Exam: Initial Vitals Temp Pulse Resp BP Pulse Ox 99.6 F 84 18 167/84 97 04/09/19 11:16 04/09/19 11:16 04/09/19 11:16 04/09/19 11:16 04/09/19 11:16 Vital Signs Reviewed: Yes Appearance: Positive: Well-Appearing, Well-Nourished Skin: Positive: Skin Color Reflects Adequate Perfusion Head/Face: Positive: Normal Head/Face Inspection Eyes: Positive: EOMI, Conjunctiva Clear Neck: Positive: Supple, No Lymphadenopathy Respiratory/Lung Sounds: Positive: Clear to Auscultation, Breath Sounds Present Cardiovascular: Positive: RRR, Pulses are Symmetrical in both Upper and Lower Extremities Musculoskeletal: Positive: Normal, Strength/ROM Intact Neurological: Positive: Speech Normal Psychiatric: Positive: Normal, Affect/Mood Appropriate Diagnostics - Vital Signs Vital Signs Temp Pulse Resp BP Pulse Ox 04/09/19 15:15 98.5 F 78 16 142/60 96 04/09/19 15:00 142/60 04/09/19 14:21 83 136/70 93 04/09/19 14:10 76 97 04/09/19 13:48 72 96 04/09/19 13:21 72 142/77 95 04/09/19 11:16 99.6 F 84 18 167/84 97 - Laboratory Lab Results: Lab Results 04/09/19 04/09/19 04/09/19 Range/Units 11:33 13:02 13:02 WBC 5.4 (3.5-10.8) 10^3/uL RBC 4.66 (3.70-4.87) 10^6 /uL Hgb 14.6 (12.0-16.0) g/dL Hct 43 (35-47) % MCV 92 (80-97) fL MCH 31 (27-31) pg MCHC 34 (31-36) g/dL RDW 13 (10-15) % Plt Count 229 (150-450) 10^3/uL MPV 8.6 (7.4-10.4) fL Neut % (Auto) 64.1 % Lymph % (Auto) 22.2 % [place] % (Auto) 12.0 % Eos % (Auto) 1.3 % Baso % (Auto) 0.4 % Absolute Neuts (auto) 3.5 (1.5-7.7) 10^3/ul Absolute Lymphs (auto) 1.2 (1.0-4.8) 10^3/ul Absolute Monos (auto) 0.7 (0-0.8) 10^3/ul Absolute Eos (auto) 0.1 (0-0.6) 10^3/ul Absolute Basos (auto) 0.0 (0-0.2) 10^3/ul Absolute Nucleated RBC 0.0 10^3/ul Nucleated RBC % 0.0 Sodium 135 (135-145) mmol/L Potassium 4.0 (3.5-5.0) mmol/L Chloride 100 L (101-111) mmol/L Carbon Dioxide 29 (22-32) mmol/L Anion Gap 6 (2-11) mmol/L BUN 9 (6-24) mg/dL Creatinine 0.68 (0.51-0.95) mg/dL Est GFR ( Amer) 102.9 (>60) Est GFR (Non-Af Amer) 85.1 (>60) BUN/Creatinine Ratio 13.2 (8-20) Glucose 102 H (70-100) mg/dL Lactic Acid (0.5-2.0) mmol/L Calcium 9.7 (8.6-10.3) mg/dL Magnesium 2.0 (1.9-2.7) mg/dL Total Bilirubin 0.40 (0.2-1.0) mg/dL AST 37 (13-39) U/L ALT 35 (7-52) U/L Alkaline Phosphatase 72 (34-104) U/L C-Reactive Protein 22.22 H (<8.01) mg/L Total Protein 7.3 (6.4-8.9) g/dL Albumin 4.2 (3.2-5.2) g/dL Globulin 3.1 (2-4) g/dL Albumin/Globulin Ratio 1.4 (1-3) Lipase 32 (11.0-82.0) U/L Urine Color Straw Urine Appearance Clear Urine pH 8.0 (5-9) Ur Specific [place] 1.004 L (1.010-1.030) Urine Protein Negative (Negative) Urine Ketones Negative (Negative) Urine Blood 1+ A (Negative) Urine Nitrate Negative (Negative) Urine Bilirubin Negative (Negative) Urine Urobilinogen Negative (Negative) Ur Leukocyte Esterase Negative (Negative) Urine WBC (Auto) Absent (Absent) Urine RBC (Auto) 1+(3-5/hpf) A (Absent) Ur Squamous Epith Cells Present A (Absent) Urine Bacteria Absent (Absent) Urine Glucose Negative (Negative) 04/09/19 Range/Units 13:02 WBC (3.5-10.8) 10^3/uL RBC (3.70-4.87) 10^6 /uL Hgb (12.0-16.0) g/dL Hct (35-47) % MCV (80-97) fL MCH (27-31) pg MCHC (31-36) g/dL RDW (10-15) % Plt Count (150-450) 10^3/uL MPV (7.4-10.4) fL Neut % (Auto) % Lymph % (Auto) % [place] % (Auto) % Eos % (Auto) % Baso % (Auto) % Absolute Neuts (auto) (1.5-7.7) 10^3/ul Absolute Lymphs (auto) (1.0-4.8) 10^3/ul Absolute Monos (auto) (0-0.8) 10^3/ul Absolute Eos (auto) (0-0.6) 10^3/ul Absolute Basos (auto) (0-0.2) 10^3/ul Absolute Nucleated RBC 10^3/ul Nucleated RBC % Sodium (135-145) mmol/L Potassium (3.5-5.0) mmol/L Chloride (101-111) mmol/L Carbon Dioxide (22-32) mmol/L Anion Gap (2-11) mmol/L BUN (6-24) mg/dL Creatinine (0.51-0.95) mg/dL Est GFR ( Amer) (>60) Est GFR (Non-Af Amer) (>60) BUN/Creatinine Ratio (8-20) Glucose (70-100) mg/dL Lactic Acid 0.8 (0.5-2.0) mmol/L Calcium (8.6-10.3) mg/dL Magnesium (1.9-2.7) mg/dL Total Bilirubin (0.2-1.0) mg/dL AST (13-39) U/L ALT (7-52) U/L Alkaline Phosphatase (34-104) U/L C-Reactive Protein (<8.01) mg/L Total Protein (6.4-8.9) g/dL Albumin (3.2-5.2) g/dL Globulin (2-4) g/dL Albumin/Globulin Ratio (1-3) Lipase (11.0-82.0) U/L Urine Color Urine Appearance Urine pH (5-9) Ur Specific [place] (1.010-1.030) Urine Protein (Negative) Urine Ketones (Negative) Urine Blood (Negative) Urine Nitrate (Negative) Urine Bilirubin (Negative) Urine Urobilinogen (Negative) Ur Leukocyte Esterase (Negative) Urine WBC (Auto) (Absent) Urine RBC (Auto) (Absent) Ur Squamous Epith Cells (Absent) Urine Bacteria (Absent) Urine Glucose (Negative) Result Diagrams: 04/09/19 13:02 04/09/19 13:02 Lab Statement: Any lab studies that have been ordered have been reviewed, and results considered in the medical decision making process. GIGU Course/Dx - Course Course Of Treatment: During this course of treatment, the patient is evaluated for suprapubic tenderness and other UTI symptoms including pain with urination and burning. She also does endorse a right-sided flank pain. On physical examination, patient appears well. She does endorse sweats and chills overnight last evening and states "I just don't feel right." She does have a history of stent placement to the kidney as well as urethral dilatation. She states she has not had any problems since this time. She does endorse a history of nephrolithiasis. She takes no medications and is otherwise healthy. Labs are obtained and are WNL including a normal white count. CRP is slightly elevated at 22. UA shows RBCs, but no other signs of urinary infection. CT abdomen/pelvis without contrast obtained to assess kidney function, hydronephrosis or stone. This was also read as negative with no acute findings. While in the ED, patient remains afebrile, vital signs are stable. She is given Toradol 30 mg IV as well as Pyridium with good effect. Patient states her symptoms have improved and pain is down from 8/10 twice 2/ 10. She denies any symptoms of a headache at this time. I discussed with patient at length findings on today's visit as well as the need for close follow -up with her urologist, Dr. Chawla. She agrees to return if she has any changing or worsening symptoms, however will follow-up with Dr. Chawla tomorrow. I see no indication for an admission at this time, however have given her strict return precautions and she understands these and voices no concerns. is at bedside. She is given Toradol 10 mg 4 times daily and Pyridium 100 mg 3 times daily as prescription as needed for any discomfort. - Diagnoses Differential Diagnoses - Female: Pelvic Inflammatory Disease, Pyelonephritis, Renal Calculi, Renal Colic, Urinary Tract Infection, Ureteral Calculi, Vaginitis Provider Diagnoses: Suprapubic tenderness, UTI symptoms, Flank pain Discharge - Sign-Out/Discharge Documenting (check all that apply): Patient Departure Patient Received Moderate/Deep Sedation with Procedure: No - Discharge Plan Condition: Stable Disposition: HOME Prescriptions: Ketorolac TAB * [Toradol TAB *] 10 mg PO Q6H #16 tab Phenazopyridine TAB* [Pyridium 100 mg TAB*] 100 mg PO TID #12 tab Referrals: Chico Anderson MD [Primary Care Provider] - Michael Chawla MD [Medical Doctor] - Additional Instructions: Please follow-up with Dr. Chawla as soon as possible Call office tomorrow morning for an appointment Please take Toradol with food 4 times daily for pain control Pyridium 100 mg 3 times daily for suprapubic tenderness in UTI symptoms As discussed we are not starting on an antibiotic at this time as your urine was clear We will send this off for culture and call you with any positive results Please return to the ED if any symptoms worsen or change Continue to drink plenty of water and rest - Billing Disposition and Condition Condition: STABLE Disposition: Home
== END 2019-04-09 15:15 | disposition home or self-care (01) ==
LOC: ED 11:13
DX: R10.2 Pelvic and perineal pain (principal); R10.30 Lower abdominal pain, unspecified; R30.0 Dysuria; Z87.891 Personal history of nicotine dependence
CPT/HCPCS: 36415; 74176; 80053; 81003; 81015; 83605; 83690; 83735; 85025; 86140; 87040; 96361; 96374; 99283; A9270-GY; J1885

== ENCOUNTER 2019-04-10 20:11 | Emergency (ER) | payer MEDICARE ==
[2019-04-10 21:27] LABS: ABS Lymphocytes 0.6 10^3/ul (1.0-4.8); ABS Monocytes 0.3 10^3/ul (0-0.8); ABS Neutrophils 2.8 10^3/ul (1.5-7.7); Eosinophil % 0.2 %; Hematocrit 41 % (35-47); Hemoglobin 13.7 g/dL (12.0-16.0); Lymphocyte % 15.2 %; Mean Corpuscular HGB Conc 34 g/dL (31-36); Mean Corpuscular Hemoglobin 31 pg (27-31); Mean Corpuscular Volume 92 fL (80-97); Mean Platelet Volume 8.6 fL (7.4-10.4); Nucleated Red Blood Cells % 0.1; Platelet Count 201 10^3/uL (150-450); Red Blood Count 4.44 10^6 /uL (3.70-4.87); Red Cell Distribution Width 14 % (10-15); White Blood Count 3.7 10^3/uL (3.5-10.8)
[2019-04-10 21:43] LABS: Albumin 3.9 g/dL (3.2-5.2); Albumin/Globulin Ratio 1.3 (1-3); BUN/Creatinine Ratio 16.4 (8-20); EGFR African American 131.5 (>60); EGFR Non-African American 108.6 (>60); Globulin 2.9 g/dL (2-4); Potassium 3.5 mmol/L (3.5-5.0); Total Bilirubin 0.4 mg/dL (0.2-1.0); Total Protein 6.8 g/dL (6.4-8.9)
--- NOTE | 2019-04-11 00:14 | ED ---
HPI Febrile Illness - HPI Summary HPI Summary: This patient is a 73 year old F presenting to ED with a chief complaint of fever since 04/07/19. Patient reports MONTES, ear pain, and back pain. The patient rates the pain 8/10 in severity. Symptoms aggravated by nothing. Symptoms alleviated by nothing. Patient reports photophobia, urinary tract burning. Patient denies vomiting, SOB, recent tick bite, aches. - History of Current Complaint Chief Complaint: EDFever Time Seen by Provider: 04/11/19 00:03 Hx Obtained From: Patient Onset/Duration: Started Days Ago - 04/07/19, Still Present Timing: Constant, Lasting Days - Since 04/07/19 Current Severity: Severe Pain Intensity: 8 Pain Scale Used: 0-10 Numeric Aggravating Factors: Nothing Alleviating Factors: Nothing Associated Signs and Symptoms: Negative - vomiting, SOB, recent tick bite, aches , Dysuria, Other: - ear pain, back pain, photophobia - Additional Pertinent History Primary Care Physician: [id number] - Allergy/Home Medications Allergies/Adverse Reactions: Allergies Allergy/AdvReac Type Severity Reaction Status Date / Time acetaminophen [From Vicodin] Allergy See Comment Verified 04/11/19 00:27 amoxicillin Allergy Rash Verified 04/11/19 00:27 clarithromycin [From Biaxin] Allergy See Comment Verified 04/11/19 00:27 clavulanic acid Allergy Stomach Verified 04/11/19 00:27 [From Augmentin] Cramps erythromycin base Allergy Rash Verified 04/11/19 00:27 hydrocodone [From Vicodin] Allergy See Comment Verified 04/11/19 00:27 latex Allergy Rash Verified 04/11/19 00:27 moxifloxacin Allergy Itching Verified 04/11/19 00:27 naproxen Allergy Nausea And Verified 04/11/19 00:27 Vomiting sulfamethoxazole Allergy Rash Verified 04/11/19 00:27 [From Bactrim] trimethoprim [From Bactrim] Allergy Rash Verified 04/11/19 00:27 ADHESIVES Allergy See Comment Uncoded 04/10/19 20:14 PMH/Surg Hx/FS Hx/Imm Hx Previously Healthy: No Endocrine/Hematology History: Denies: Hx Diabetes Cardiovascular History: Reports: Hx Angina Denies: Hx Coronary Artery Disease, Hx Hypercholesterolemia, Hx Hypertension , Hx Myocardial Infarction, Hx Valvular Heart Disease, Other Cardiovascular Problems/Disorders Respiratory History: Denies: Hx Asthma, Hx Chronic Obstructive Pulmonary Disease (COPD), Other Respiratory Problems/Disorders GI History: Denies: Other GI Disorders History: Reports: Hx Kidney Stones - IN THE PAST WITH STENT PLACED Denies: Other Problems/Disorders Musculoskeletal History: Denies: Other Musculoskeletal History Sensory History: Reports: Hx Cataracts, Hx Contacts or Glasses - GLASSES Denies: Hx Hearing Aid Opthamlomology History: Reports: Hx Cataracts, Hx Contacts or Glasses - GLASSES Neurological History: Reports: Hx Headaches, Hx Migraine - INTERMITTENT Denies: Other Neuro Impairments/Disorders - Surgical History Surgery Procedure, Year, and Place: VERICOSE VEIN 2004 [facility]. 02/16/13, BUNIONECTOMY, RIGHT , [facility] [place]. URETERAL STENT, [facility] [place], 2007. TONSILECTOMY A CHILD Hx Anesthesia Reactions: Yes - VOMITING Infectious Disease History: No Infectious Disease History: Denies: Traveled Outside the [place] in Last 30 Days - Family History Known Family History: Positive: Other - mother had breast cancer Negative: Cardiac Disease, Hypertension, Diabetes - Social History Alcohol Use: Rare Alcohol Amount: HOLIDAYS Hx Substance Use: No Substance Use Type: Reports: None Hx Tobacco Use: Yes Smoking Status (MU): Former Smoker Review of Systems Positive: Fever ENT: Other - Photophobia Positive: Ear Ache Negative: Shortness Of Breath Negative: Vomiting Positive: burning Musculoskeletal: Other - Back pain Skin: Negative - Recent tick bite Positive: Headache All Other Systems Reviewed And Are Negative: Yes Physical Exam - Summary Physical Exam Summary: VITAL SIGNS: Reviewed. GENERAL: Patient is a well-developed and nourished female who is lying comfortable in the stretcher. Patient is not in any acute respiratory distress. HEAD AND FACE: No signs of trauma. No ecchymosis, hematomas or skull depressions. No sinus tenderness. EYES: PERRLA, EOMI x 2, No injected conjunctiva, no nystagmus. EARS: Hearing grossly intact. Ear canals and tympanic membranes are within normal limits. MOUTH: Oropharynx within normal limits. NECK: mild nuchal rigidity CHEST: Symmetric, no tenderness at palpation LUNGS: Clear to auscultation bilaterally. No wheezing or crackles. CVS: tachycardia ABDOMEN: Soft, non-tender. No signs of distention. No rebound no guarding, and no masses palpated. Bowel sounds are normal. EXTREMITIES: FROM in all major joints, no edema, no cyanosis or clubbing. NEURO: Alert and oriented x 3. No acute neurological deficits. Speech is normal and follows commands. SKIN: Dry and warm Triage Information Reviewed: Yes Vital Signs On Initial Exam: Initial Vitals Temp Pulse Resp BP Pulse Ox 102 F 102 17 184/65 96 04/10/19 20:12 04/10/19 20:12 04/10/19 20:12 04/10/19 20:12 04/10/19 20:12 Vital Signs Reviewed: Yes Procedures - Lumbar Puncture Lumbosacral Joint Position: Sitting Aseptic Technique: Lidocaine, Other - Iodine swab prep Anesthesia Used: 2.0% Lido Spinal Needle Used: 20 Gauge Lumbar Puncture Note: Successful tap at L3-L4, patient tolerated well. Diagnostics - Vital Signs Vital Signs Temp Pulse Resp BP Pulse Ox 04/10/19 23:43 102.7 F 0 0 0/0 0 04/10/19 22:36 103 F 96 16 162/69 96 04/10/19 20:12 102 F 102 17 184/65 96 - Laboratory Lab Results: Lab Results 04/10/19 04/10/19 04/10/19 Range/Units 21:19 21:19 21:19 WBC 3.7 (3.5-10.8) 10^3/uL RBC 4.44 (3.70-4.87) 10^6 /uL Hgb 13.7 (12.0-16.0) g/dL Hct 41 (35-47) % MCV 92 (80-97) fL MCH 31 (27-31) pg MCHC 34 (31-36) g/dL RDW 14 (10-15) % Plt Count 201 (150-450) 10^3/uL MPV 8.6 (7.4-10.4) fL Neut % (Auto) 75.5 % Lymph % (Auto) 15.2 % [place] % (Auto) 8.3 % Eos % (Auto) 0.2 % Baso % (Auto) 0.8 % Absolute Neuts (auto) 2.8 (1.5-7.7) 10^3/ul Absolute Lymphs (auto) 0.6 L (1.0-4.8) 10^3/ul Absolute Monos (auto) 0.3 (0-0.8) 10^3/ul Absolute Eos (auto) 0.0 (0-0.6) 10^3/ul Absolute Basos (auto) 0.0 (0-0.2) 10^3/ul Absolute Nucleated RBC 0.0 10^3/ul Nucleated RBC % 0.1 Sodium 133 L (135-145) mmol/L Potassium 3.5 (3.5-5.0) mmol/L Chloride 99 L (101-111) mmol/L Carbon Dioxide 27 (22-32) mmol/L Anion Gap 7 (2-11) mmol/L BUN 9 (6-24) mg/dL Creatinine 0.55 (0.51-0.95) mg/dL Est GFR ( Amer) 131.5 (>60) Est GFR (Non-Af Amer) 108.6 (>60) BUN/Creatinine Ratio 16.4 (8-20) Glucose 119 H (70-100) mg/dL Lactic Acid 0.6 (0.5-2.0) mmol/L Calcium 9.0 (8.6-10.3) mg/dL Total Bilirubin 0.40 (0.2-1.0) mg/dL AST 81 H (13-39) U/L ALT 68 H (7-52) U/L Alkaline Phosphatase 96 (34-104) U/L Total Protein 6.8 (6.4-8.9) g/dL Albumin 3.9 (3.2-5.2) g/dL Globulin 2.9 (2-4) g/dL Albumin/Globulin Ratio 1.3 (1-3) Result Diagrams: 04/10/19 21:19 04/10/19 21:19 Lab Statement: Any lab studies that have been ordered have been reviewed, and results considered in the medical decision making process. Re-Evaluation - Re-Evaluation First Eval Re-Evaluation Time: 01:00 Comment: Patient agrees to spinal tap. Second Eval Re-Evaluation Time: 01:50 Change: Improved Comment: Patient reports still feeling her headache, but it is slightly better. I performed the lumbar puncture without complication. Third Eval Re-Evaluation Time: 03:20 Change: Improved Comment: Patient reports feeling better. I discussed the spinal tap results with her, which were clear. Patient will be discharged home with dx of fever and viral syndrome. Patient understands and agrees with this plan. Course/Dx - Course Course Of Treatment: This patient is a 73 year old F presenting to ED with a chief complaint of fever since 04/07/19. Blood work obtained. In the ED course, patient received Tylenol, Benadryl, Toradol, Reglan, and fluids. I performed a lumbar puncture on the patient. The patient tolerated the procedure well. It was a successful tap. Spinal tap is clear, no meningitis. Patient has subtle AST /ALT/CRP elevations, most likely viral. But given the patient is feeling ill and sick, ehrlichiosis is possible so I will treat with doxycycline for 10 days. Patient will be discharged home with dx of fever and viral syndrome. Patient understands and agrees with this plan. - Diagnoses Provider Diagnoses: Fever, Viral syndrome Discharge - Sign-Out/Discharge Documenting (check all that apply): Patient Departure - Discharge Patient Received Moderate/Deep Sedation with Procedure: No - Discharge Plan Condition: Stable Disposition: HOME Prescriptions: DOXYcycline CAP(*) [DOXYcycline 100MG CAP(*)] 100 mg PO BID #20 cap Ibuprofen TAB* [Motrin TAB* 600 MG] 600 mg PO Q6H PRN #30 tab PRN Reason: Pain Or Fever oxyCODONE/Acetamin 5/325 MG* [Percocet 5/325 TAB*] 1 tab PO Q6H PRN #14 tab MDD 4 PRN Reason: Headache Patient Education Materials: Fever in Adults (ED), Viral Syndrome (ED) Referrals: Chico Anderson MD [Primary Care Provider] - 2 Days Additional Instructions: Follow up with your primary care provider in 1-2 days. RETURN TO THE ER FOR WORSENING OR CHANGING SYMPTOMS. - Attestation Statements Document Initiated by Scribe: Yes Documenting Scribe: Chico Brown Provider For Whom Jaycee is Documenting (Include Credential): Yanet Emerson MD Scribe Attestation: I, Chico Brown, scribed for Yanet Emerson MD on 04/11/19 at 0326. Status of Scribe Document: Ready
[2019-04-11] MEDS ORDERED: Ketorolac INJ* 30 MG/ML 1 ML VIAL IV PUSH ONE (00:26)
[2019-04-11] MEDS ORDERED: NS 0.9% 1000 ML** 2,000 ML IV ONE (00:27)
[2019-04-11] MEDS ORDERED: Acetaminophen TAB* 325 MG PO ONE (00:27)
[2019-04-11] MEDS ORDERED: Metoclopramide IV* 5 MG/ML 2 ML VIAL IV SLOW PU ONE (00:27)
[2019-04-11] MEDS ORDERED: diPHENhydraMINE IV* 50 MG/ML 1 ml VIAL (BENADRYL) SLOW PUSH ONE (00:27)
[2019-04-11 00:49] LABS: C Reactive Protein 71.73 mg/L (<8.01)
[2019-04-11] MEDS ORDERED: Lidocaine 2% w/ EPI 1:200,000* 20 ML VIAL ONE (01:54)
[2019-04-11] MEDS ORDERED: Morphine 4 MG/ML VIAL (1 ml) 4 MG/ML VIAL IV ONE (02:03)
[2019-04-11] MEDS ORDERED: NS 0.9% 1000 ML** 1,000 ML IV ONE (02:07)
[2019-04-11 02:09] LABS: Rapid Strep Molecular Negative (Negative)
[2019-04-11 02:13] LABS: Body Fluid Source Cerebral Spinal
[2019-04-11 02:15] LABS: Influenza A Molecular NEGATIVE (Negative); Influenza B Molecular NEGATIVE (Negative)
[2019-04-11 02:27] LABS: CSF Glucose 68 mg/dL (40-70)
[2019-04-11] MEDS ORDERED: DOXYcycline CAP(*) 100 MG PO ONE (03:21)
[2019-04-11 03:32] LABS: Body Fluid Mono 3 %
[2019-04-11 04:08] VITALS: BP 131/60
[2019-04-12 16:21] LABS: Ehrlichia chaffeensis IgG AB <1:64 titer (<1:64)
[2019-04-12 16:30] LABS: HSV 1 PCR, CSF Negative (Negative); HSV 2 PCR, CSF Negative (Negative)
[2019-04-13 03:04] LABS: B. garinii/B. afzellii PCR Negative (Negative); Lyme Disease Source CSF
== END 2019-04-11 04:31 | disposition home or self-care (01) ==
LOC: ED 20:11
DX: B34.9 Viral infection, unspecified (principal); Z88.1 Allergy status to other antibiotic agents; Z91.040 Latex allergy status; Z88.5 Allergy status to narcotic agent; Z88.2 Allergy status to sulfonamides; Z88.8 Allergy status to other drugs, medicaments and biological substances; Z91.048 Other nonmedicinal substance allergy status; Z87.891 Personal history of nicotine dependence
CPT/HCPCS: 36415; 80053; 82945; 83605; 84157; 85025; 86140; 86618; 86666; 87040; 87070; 87205; 87476; 87529; 87651; 87798; 89051; 96361; 96374; 96375; 99283; A9270-GY; J1200; J1885; J2270; J2765